=== PATIENT | male | born 1980 | race Caucasian/White ===

== ENCOUNTER 2016-09-15 09:18 | Emergency (ER) | payer SELFPAY ==
[~2016-09-15] VITALS: Ht 182.9 cm; Wt 80.0 kg
[~2016-09-15 09:18] MED LIST: BENT20TA PO; OXYC5 PO
[2016-09-15 09:19] VITALS: BP 139/81; PULSE 86; RESP 18; TEMP 98; O2SAT 98
[2016-09-15] MEDS ORDERED: BENT20TA PO (09:41)
[2016-09-15] MEDS ORDERED: HYDR2TAB PO (09:41)
--- NOTE | 2016-09-15 09:55 | PD ---
HPI Chief Complaint: Flank/Kidney Pain Time Seen by Provider: 09:42 Travel History International Travel<30 days: No Contact w/Intl Traveler<30days: No Traveled to known affect area: No History of Present Illness HPI This patient complains of flank pain. Duration 4 days. Severity is moderate. No injury. It's worse when he presses it. No urinary complaint or fever. Has chronic abdominal pain but this is different than his usual. He denies withdrawal. No alleviating factors. PFSH Past Medical History Asthma: No Blood Disorders: No Heart Rhythm Problems: No Cancer: No Cardiovascular Problems: No High Cholesterol: No Chest Pain: No Congestive Heart Failure: No COPD: No Diabetes: No Diminished Hearing: No Endocrine: No Gastrointestinal Disorders: Yes (HISTORY OF PERF. INTESTINE A CHILD) GERD: Yes Genitourinary: No Immune Disorder: No Implanted Vascular Access Dvce: No Musculoskeletal: No Neurologic: No Psychiatric: No Reproductive: No Respiratory: No Immunizations Current: No Sleep Apnea: No Past Surgical History Abdominal Surgery: Yes (COLOSTOMY-REVERSAL; HERNIAS) Appendectomy: Yes Joint Replacement: Yes (L PERITROCHANTERIC HIP FRACTURE ) Pacemaker: No Other Surgery: Yes Social History Alcohol Use: No (QUIT) Tobacco Use: No Substance Use: Yes (marijuana) Allergies-Medications (Allergen,Severity, Reaction): Coded Allergies: Morphine (Verified Allergy, Severe, 09/15/16) *MDRO Multi-Drug Resistant Organism (Verified Allergy, Unknown, 09/15/16) MRSA Wound 12/2011 Reported Meds & Prescriptions Reported Meds & Active Scripts Active Reported Hydromorphone (Hydromorphone HCl) 2 Mg Tab 2 Mg PO Q8H PRN Bentyl (Dicyclomine HCl) 20 Mg Tab 20 Mg PO BID Review of Systems General / Constitutional: No: Fever Eyes: No: Visual changes HENT: No: Headaches Cardiovascular: No: Chest Pain or Discomfort Respiratory: No: Shortness of Breath Gastrointestinal: Positive: Abdominal Pain Genitourinary: Positive: Flank Pain, No: Dysuria Musculoskeletal: No: Pain Skin: No Rash Neurologic: No: Weakness Psychiatric: No: Depression Endocrine: No: Polydipsia Hematologic/Lymphatic: No: Easy Bruising Physical Exam Narrative GENERAL: Well-nourished, well-developed patient in no apparent distress. SKIN: Warm and dry. HEAD: Atraumatic. Normocephalic. EYES: Pupils equal and round. No scleral icterus. No injection or drainage. ENT: No nasal bleeding or discharge. Mucous membranes pink and moist. NECK: Trachea midline. No JVD. CARDIOVASCULAR: Regular rate and rhythm. No murmur appreciated. RESPIRATORY: No accessory muscle use. Clear to auscultation. Breath sounds equal bilaterally. GASTROINTESTINAL: Abdomen soft, non-tender, nondistended. Hepatic and splenic margins not palpable. MUSCULOSKELETAL: No obvious deformities. No clubbing. No cyanosis. No edema. No midline tenderness of the back. Both low lumbar muscular areas are tender. NEUROLOGICAL: Awake and alert. No obvious cranial nerve deficits. Motor grossly within normal limits. Normal speech. PSYCHIATRIC: Appropriate mood and affect; insight and judgment normal. Data Data Last Documented VS Vital Signs Date Time Temp Pulse Resp B/P Pulse Ox O2 Delivery O2 Flow Rate FiO2 09/15/16 09:19 98.0 86 18 139/81 98 Room Air Orders Iv Access Insert/Monitor (09/15/16 09:51) Complete Blood Count With Diff (09/15/16 09:51) Basic Metabolic Panel (Bmp) (09/15/16 09:51) Urinalysis - C+S If Indicated (09/15/16 09:51) Orphenadrine Inj (Norflex Inj) (09/15/16 10:00) Ketorolac Inj (Toradol Inj) (09/15/16 10:00) Labs Laboratory Tests Test 09/15/16 09/15/16 09:45 09:50 White Blood Count 8.2 TH/MM3 Red Blood Count 4.49 MIL/MM3 Hemoglobin 14.0 GM/DL Hematocrit 39.5 % Mean Corpuscular Volume 88.0 FL Mean Corpuscular Hemoglobin 31.2 PG Mean Corpuscular Hemoglobin 35.5 % Concent Red Cell Distribution Width 13.1 % Platelet Count 221 TH/MM3 Mean Platelet Volume 6.9 FL Neutrophils (%) (Auto) 69.7 % Lymphocytes (%) (Auto) 19.5 % Monocytes (%) (Auto) 8.1 % Eosinophils (%) (Auto) 2.2 % Basophils (%) (Auto) 0.5 % Neutrophils # (Auto) 5.7 TH/MM3 Lymphocytes # (Auto) 1.6 TH/MM3 Monocytes # (Auto) 0.7 TH/MM3 Eosinophils # (Auto) 0.2 TH/MM3 Basophils # (Auto) 0.0 TH/MM3 CBC Comment DIFF FINAL Differential Comment Sodium Level 137 MEQ/L Potassium Level 3.8 MEQ/L Chloride Level 104 MEQ/L Carbon Dioxide Level 26.4 MEQ/L Anion Gap 7 MEQ/L Blood Urea Nitrogen 10 MG/DL Creatinine 0.88 MG/DL Estimat Glomerular Filtration 97 ML/MIN Rate Random Glucose 138 MG/DL Calcium Level 8.6 MG/DL Urine Color YELLOW Urine Turbidity CLEAR Urine pH 5.5 Urine Specific [place] 1.026 Urine Protein NEG mg/dL Urine Glucose (UA) NEG mg/dL Urine Ketones NEG mg/dL Urine Occult Blood NEG Urine Nitrite NEG Urine Bilirubin NEG Urine Urobilinogen 2.0 MG/DL Urine Leukocyte Esterase NEG Urine RBC LESS THAN 1 /hpf Urine WBC LESS THAN 1 /hpf Urine Squamous Epithelial <1 /hpf Cells Urine Mucus FEW /lpf Microscopic Urinalysis Comment CULT NOT INDICATED MDM Medical Decision Making Medical Screen Exam Complete: Yes Emergency Medical Condition: Yes Medical Record Reviewed: Yes Differential Diagnosis Lumbar strain, sciatica, pyelonephritis Narrative Course I have reviewed the patient's electronic medical record. Patient is a frequent visitor to the emergency room for chronic abdominal pain. His last visit however was one year ago IV placed CBC is normal Metabolic profile is normal Urinalysis is clean Patient's abdomen is soft and benign and nontender I gave him injection of Toradol and Norflex This seems most consistent with musculoskeletal back pain Not consistent with kidney stone He is going to follow-up with primary care Diagnosis Primary Impression: Bilateral flank pain Additional Instructions: The patient was advised to follow up with their physician and return if they worsen. Med/Other Pt SpecificInfo: Other Disposition: 01 DISCHARGE HOME Condition: Stable Erasmo Lux MD Sep 15, 2016 09:55
[2016-09-15] MEDS ORDERED: ORPHENADRINE INJ 60 MG/2 ML AMP IM ONE (10:00)
[2016-09-15] MEDS ORDERED: KETOROLAC TROMETHAMINE 30 MG/ML (IVP) VIAL IVP ONE (10:00)
[2016-09-15 10:15] LABS: AUTOMATED NEUTROPHIL # 5.7 TH/MM3 (1.8-7.7); BASOPHIL % 0.5 % (0.0-2.0); EOSINOPHIL # 0.2 TH/MM3 (0-0.4); EOSINOPHIL % 2.2 % (0.0-4.0); HEMATOCRIT 39.5 % (39.0-51.0); HEMO FLAGS DIFF FINAL; LYMPH % 19.5 % (9.0-44.0); LYMPHOCYTE # 1.6 TH/MM3 (1.0-4.8); MEAN CORPUSCULAR HEMOGLOBIN 31.2 PG (27.0-34.0); MEAN CORPUSCULAR HGB CONC 35.5 % (32.0-36.0); MONO % 8.1 % (0.0-8.0); NEUT % 69.7 % (16.0-70.0); PLATELET COUNT 221 TH/MM3 (150-450); RED BLOOD COUNT 4.49 MIL/MM3 (4.50-5.90); RED CELL DISTRIBUTION WIDTH 13.1 % (11.6-17.2); WHITE BLOOD COUNT 8.2 TH/MM3 (4.0-11.0)
[2016-09-15 10:18] LABS: BLOOD, URINE NEG (NEG); COMMENT (UR) CULT NOT INDICATED; CULTURE IF INDICATED CULT NOT INDICATED; GLUCOSE,URINE NEG (NEG); KETONE, URINE NEG (NEG); MUCUS URINE FEW /lpf (OCC); NITRITE,URINE NEG (NEG); PH, URINE 5.5 (5.0-8.5); SQUAMOUS EPITHELIAL CELL URINE <1 /hpf (0-5); URINE COLOR YELLOW (YELLW/STRAW)
[2016-09-15 10:29] LABS: BICARBONATE 26.4 MEQ/L (21.0-32.0); POTASSIUM 3.8 MEQ/L (3.5-5.1)
== END 2016-09-15 13:20 | disposition home or self-care (01) ==
LOC: NEPA 09:18
DX: R10.12 Left upper quadrant pain (principal); R10.11 Right upper quadrant pain
CPT/HCPCS: 80048; 81001; 85025; 96372; 96374; 99284; J1885; J2360

== ENCOUNTER 2018-02-28 10:17 | Observation (INO) ==
[2018-02-28] MEDS ORDERED: Sod Chloride 0.9% Inj 1,000 ML IV.SIG ONE (12:07)
[2018-02-28 12:41] LABS: Baso # (Auto) 0.1 th/mm3 (0.0-0.2); Baso % (Auto) 0.5 % (0.0-2.0); Eos % (Auto) 0.4 % (0.0-4.0); Hematocrit 43.8 % (39.0-51.0); Hemoglobin 14.8 gm/dL (13.0-17.0); Lymph # (Auto) 1.8 th/mm3 (1.0-4.8); Lymph % (Auto) 16.4 % (9.0-44.0); Mean Corpuscular HGB Conc 33.8 % (32.0-36.0); Mean Corpuscular Hemoglobin 31.5 pg (27.0-34.0); Mean Corpuscular Volume 93.4 fL (80.0-100.0); Mean Platelet Volume 6.3 fL (7.0-11.0); Mono # (Auto) 0.6 th/mm3 (0.0-0.9); Neut # (Auto) 8.7 th/mm3 (1.8-7.7); Neut % (Auto) 77.7 % (16.0-70.0); Platelet Count 267 th/mm3 (150-450); Red Blood Count 4.69 mil/mm3 (4.50-5.90); Red Cell Distribution Width 13.6 % (11.6-17.2); White Blood Count 11.2 th/mm3 (4.0-11.0)
--- NOTE | 2018-02-28 12:49 | ED ---
HPI General Chief Complaint: Abdominal Pain Stated Complaint: Abd pain/blood in stool Time Seen by Provider: 02/28/18 11:21 Source: patient Mode of arrival: ambulatory Limitations: no limitations History of Present Illness HPI narrative: Patient comes in with intermittent abdominal pain over the past 2 weeks, however over the past 2 days he has started to have bright red blood per rectum that has been fairly regular. Per patient this is never happened before. Patient has a primary care and Dr. Clifford kessler but no GI doctor. MD complaint: abdominal pain Onset (ago): day(s) (2) Pain Consistency: constant Location: diffuse Severity scale (1-10): 2 Quality: cramping Radiation: none Migration to: no migration Relieving factors: nothing Exacerbating factors: nothing Associated symptoms: denies other symptoms Related Data Home Medications Medication Instructions Recorded Confirmed dicyclomine [Bentyl] 20 mg BID 02/28/18 02/28/18 hydromorphone [Dilaudid] 2 mg PO BID PRN 02/28/18 02/28/18 Allergies Allergy/AdvReac Type Severity Reaction Status Date / Time morphine Allergy Severe Anaphylaxis Unverified 02/28/18 15:00 Review of Systems ROS: all other systems reviewed are negative PMFSH History History Provided By: Patient Family History Family History Other Colonic polyp Social History Social History Substance History: Active Abuse Second Hand Smoke Exposure: No Smoking Status: Former smoker How Often Do You Have a Drink Containing Alcohol: 2 to 4 times a month Recent Travel in [facility] within the Last 8 Weeks: No Recent Out of Country Travel within the Last 8 Weeks: No Substance Abuse Detail Marijuana: Substance Use Status: Active Route Used Substance Abuse: Inhalation Substance Frequency: weekly Immunization History Tetanus Immunization: <5 Years Hx Influenza Vaccine This Season: Yes Exam Narrative Exam Narrative: GENERAL: Well-nourished, well-developed patient in no apparent distress. SKIN: Warm and dry. HEAD: Atraumatic. Normocephalic. EYES: Pupils equal and round. No scleral icterus. No injection or drainage. ENT: No nasal bleeding or discharge. Mucous membranes pink and moist. NECK: Trachea midline. No JVD. CARDIOVASCULAR: Regular rate and rhythm. no rubs or gallops RESPIRATORY: No accessory muscle use. Clear to auscultation. Breath sounds equal bilaterally. GASTROINTESTINAL: Abdomen soft, non-tender, nondistended. No rebound or guarding ... No external hemorrhoids noted, no anal fissure noted. However the patient does have bright red blood per rectum on rectal exam MUSCULOSKELETAL: Extremities without clubbing, cyanosis, or edema. No obvious deformities. NEUROLOGICAL: Awake and alert. No obvious cranial nerve deficits. Motor grossly within normal limits. Five out of 5 muscle strength in the arms and legs. Normal speech. PSYCHIATRIC: Appropriate mood and affect; insight and judgment normal. Course Initial Documented Vital Signs Temperature 98.9 F 02/28/18 10:19 Pulse Rate 97 H 02/28/18 10:19 Respiratory Rate 20 02/28/18 10:19 Blood Pressure 175/72 H 02/28/18 10:19 Pulse Oximetry 96 02/28/18 10:19 Last Documented Vital Signs Temperature 98.9 F 02/28/18 10:19 Pulse Rate 108 H 02/28/18 11:36 Respiratory Rate 18 02/28/18 11:36 Blood Pressure 128/60 02/28/18 11:36 Pulse Oximetry 98 02/28/18 15:34 Medical Decision Making MDM Narrative Medical decision making narrative: CBC was interpreted as no leukocytosis, no anemia, normal platelet count and no evidence of any left shift Electrolytes are all within normal limits, normal liver kidney and pancreatic functions UA was consistent of poor collection however no evidence of any UTI CT abdomen and pelvis performed by and read by radiologist shows postsurgical changes involving the upper abdomen, no abscess is seen, no free fluid or free air is identified, the examination appears similar to the previous study dated September 02, 2059 Patient will be admitted to medical team and GI will be consulted stool sample shows positive C. difficile by PCR returned after patient was admitted, medical team informed by nurse goodman. Medical Screen Exam Complete: Yes Emergency Medical Condition: Yes Differential Diagnosis Differential Diagnosis: AV malformation versus anal fissure versus hemorrhoid versus colitis versus diverticulitis versus ischemic colitis Medical Records Medical records reviewed: Yes I reviewed the patient's medical records. Reviewed multiple admissions in the past, patient seems to prefer Dilaudid as the pain control of choice. Has had a history of colostomy reversal hernia. Repair. 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 Patient is also a long-term opiate user..... However today's visit is much different and that the patient downplays his abdominal pain for his concern of noticing bright red blood coming out of his rectum. He states that he is constantly in pain and today he is no different than any other day, however what is very different is that his multiple episodes of bright red blood per rectum. Lab Data Lab results reviewed: Yes I reviewed the patient's lab results. Result diagrams: 02/28/18 12:22 02/28/18 12:22 Lab Results 02/28/18 02/28/18 02/28/18 Range/Units 12:22 12:22 12:22 WBC 11.2 H (4.0-11.0) th/mm3 RBC 4.69 (4.50-5.90) mil/mm3 Hgb 14.8 (13.0-17.0) gm/dL Hct 43.8 (39.0-51.0) % MCV 93.4 (80.0-100.0) fL MCH 31.5 (27.0-34.0) pg MCHC 33.8 (32.0-36.0) % RDW 13.6 (11.6-17.2) % Plt Count 267 (150-450) th/mm3 MPV 6.3 L (7.0-11.0) fL Neut % (Auto) 77.7 H (16.0-70.0) % Lymph % (Auto) 16.4 (9.0-44.0) % [place] % (Auto) 5.0 (0.0-8.0) % Eos % (Auto) 0.4 (0.0-4.0) % Baso % (Auto) 0.5 (0.0-2.0) % Neut # (Auto) 8.7 H (1.8-7.7) th/mm3 Lymph # (Auto) 1.8 (1.0-4.8) th/mm3 [place] # (Auto) 0.6 (0.0-0.9) th/mm3 Eos # (Auto) 0.0 (0.0-0.4) th/mm3 Baso # (Auto) 0.1 (0.0-0.2) th/mm3 WBC Differential . Differential Comment Auto diff final Sodium 142 (136-145) meq/L Potassium 4.0 (3.5-5.1) meq/L Chloride 109 H (98-107) meq/L Carbon Dioxide 22.7 (21.0-32.0) meq/L Anion Gap 10 (5-15) meq/L BUN 9 (7-18) mg/dL Creatinine 0.84 (0.60-1.30) mg/dL Estimated GFR Greater than 89 (>89) mL/min Random Glucose 86 (74-106) mg/dL Calcium 9.1 (8.5-10.1) mg/dL Total Bilirubin 0.5 (0.2-1.0) mg/dL AST 21 (15-37) U/L ALT 26 (12-78) U/L Alkaline Phosphatase 71 (45-117) U/L Total Protein 7.6 (6.4-8.2) g/dL Albumin 4.5 (3.4-5.0) g/dL Lipase 81 (73-393) U/L Urine Color Straw (Yellw/Straw) Urine Clarity Turbid H (Clear) Urine pH 5.0 (5.0-8.5) Ur Specific [place] 1.021 (1.002-1.035) Urine Protein Negative (Neg-Trace) mg/dL Urine Glucose (UA) Negative (Negative) mg/dL Urine Ketones Negative (Negative) mg/dL Urine Occult Blood Small H (Negative) Urine Nitrate Negative (Negative) Urine Bilirubin Negative (Negative) Urine Urobilinogen Less than 2 (Less than 2) mg/dL Ur Leukocyte Esterase Negative (Negative) Urine RBC 4 H (0-3) /hpf Amorphous Sediment Many H (None) /hpf Urine Mucus Many H (Occasional) /lpf Micro UA Comment Culture not ind Urine Culture Comments Culture not ind Stl C.difficile Tox PCR (Negative) St C. diff Tox Epid 027 (Negative) 02/28/18 Range/Units 14:21 WBC (4.0-11.0) th/mm3 RBC (4.50-5.90) mil/mm3 Hgb (13.0-17.0) gm/dL Hct (39.0-51.0) % MCV (80.0-100.0) fL MCH (27.0-34.0) pg MCHC (32.0-36.0) % RDW (11.6-17.2) % Plt Count (150-450) th/mm3 MPV (7.0-11.0) fL Neut % (Auto) (16.0-70.0) % Lymph % (Auto) (9.0-44.0) % [place] % (Auto) (0.0-8.0) % Eos % (Auto) (0.0-4.0) % Baso % (Auto) (0.0-2.0) % Neut # (Auto) (1.8-7.7) th/mm3 Lymph # (Auto) (1.0-4.8) th/mm3 [place] # (Auto) (0.0-0.9) th/mm3 Eos # (Auto) (0.0-0.4) th/mm3 Baso # (Auto) (0.0-0.2) th/mm3 WBC Differential Differential Comment Sodium (136-145) meq/L Potassium (3.5-5.1) meq/L Chloride (98-107) meq/L Carbon Dioxide (21.0-32.0) meq/L Anion Gap (5-15) meq/L BUN (7-18) mg/dL Creatinine (0.60-1.30) mg/dL Estimated GFR (>89) mL/min Random Glucose (74-106) mg/dL Calcium (8.5-10.1) mg/dL Total Bilirubin (0.2-1.0) mg/dL AST (15-37) U/L ALT (12-78) U/L Alkaline Phosphatase (45-117) U/L Total Protein (6.4-8.2) g/dL Albumin (3.4-5.0) g/dL Lipase (73-393) U/L Urine Color (Yellw/Straw) Urine Clarity (Clear) Urine pH (5.0-8.5) Ur Specific [place] (1.002-1.035) Urine Protein (Neg-Trace) mg/dL Urine Glucose (UA) (Negative) mg/dL Urine Ketones (Negative) mg/dL Urine Occult Blood (Negative) Urine Nitrate (Negative) Urine Bilirubin (Negative) Urine Urobilinogen (Less than 2) mg/dL Ur Leukocyte Esterase (Negative) Urine RBC (0-3) /hpf Amorphous Sediment (None) /hpf Urine Mucus (Occasional) /lpf Micro UA Comment Urine Culture Comments Stl C.difficile Tox PCR Positive H (Negative) St C. diff Tox Epid 027 Negative (Negative) Imaging Data Radiologist's impression: Abdomen/Pelvis CT 02/28/18 12:07 CONCLUSION: 1. Postsurgical changes involving the upper abdomen. 2. No abscess is seen. No free fluid or free air is identified. The examination appears similar to the previous study dated 09/02/2015. Discharge Plan Discharge Disposition Patient Disposition: 30 Still Patient Discharge Condition Condition: Stable Discharge Details Diagnosis: Acute GI bleeding Physicians Team ED Provider: Speedy Stovall Primary Care Provider: Clifford Finnegan Attending Provider: Jacob Bishop Other Providers: Jonel Loving Status ED Status: Admitted Observation Patient
[2018-02-28 12:50] LABS: Amorphous Sediment,Urine Many /hpf; Bilirubin,Urine Negative (Negative); Clarity,Urine Turbid (Clear); Color,Urine Straw (Yellw/Straw); Glucose,Urine (UA) Negative (Negative); Leukocyte Esterase,Urine Negative (Negative); Mucus,Urine Many /lpf (Occasional); Nitrite,Urine Negative (Negative); Specific Gravity,Urine 1.021 (1.002-1.035)
[2018-02-28 13:01] LABS: Albumin 4.5 g/dL (3.4-5.0); Anion Gap 10 meq/L (5-15); Aspartate Aminotransferase 21 U/L (15-37); Blood Urea Nitrogen 9 mg/dL (7-18); Calcium 9.1 mg/dL (8.5-10.1); Carbon Dioxide 22.7 meq/L (21.0-32.0); Chloride 109 meq/L (98-107); Glucose,Random 86 mg/dL (74-106); Lipase 81 U/L (73-393); Sodium 142 meq/L (136-145)
[2018-02-28 13:05] LABS: Alanine Aminotransferase 26 U/L (12-78); Alkaline Phosphatase 71 U/L (45-117); Glomerular Filtration Rate Greater Than 89 mL/min (>89); Total Protein 7.6 g/dL (6.4-8.2)
--- NOTE | 2018-02-28 14:03 | CT ---
EXAM DATE: 02/28/2018 1:53 PM EDT AGE/SEX: 37 years / Male INDICATIONS: Abdominal pain for 2 weeks, now with blood in stool. CLINICAL DATA: This is the patient's initial encounter. Patient reports that signs and symptoms have been present for 2 weeks and indicates a pain score of 4/10. MEDICAL/SURGICAL HISTORY: . Intestinal perforation as child . Prior abdominal surgeries - colo stomy with reversal, prior G-tube, hernia repair ORAL CONTRAST: No oral contrast ingested. RADIATION DOSE: 6.17 CTDI (mGy) [place] [facility] [place] CONTRAST[place] 09/02/2015. . TECHNIQUE: Multiple contiguous axial images were obtained through the abdomen and pelvis following b olus infusion of 71 ml Omnipaque 350 (iohexol) nonionic water-soluble contrast as a single exam dos e. No oral contrast ingested. Using automated exposure control and adjustment of the mA and/or kV ac cording to patient size, radiation dose was kept as low as reasonably achievable to obtain optimal di agnostic quality images. DICOM format image data is available electronically for review and comparis on. FINDINGS: The limited portion of lung base visualized is clear. Imaging through the upper abdomen demonstrates multiple surgical clips along the gastroesophageal giovanni ction. The appearance of the liver, spleen, pancreas, adrenal glands and kidneys is within normal limits. There is no retroperitoneal lymphadenopathy. The abdominal aorta is normal in caliber. The visualized loops of small and large bowel in the upper abdomen are unremarkable. No free air free fluid is seen within the upper abdomen. There is no free fluid within the pelvis. No iliac or inguinal adenopathy is present. The loops of sm all and large bowel within the pelvis are unremarkable. The osseous structures demonstrate postsurgical changes involving the left hip but are otherwise unre markable. CONCLUSION: 1. Postsurgical changes involving the upper abdomen. 2. No abscess is seen. No free fluid or free air is identified. The examination appears similar to t [place] previous study dated 09/02/2015. Electronically signed by: Renaldo Solis MD 02/28/2018 2:02 PM EDT
--- NOTE | 2018-02-28 15:16 | P.CONGI ---
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 Pt is known to our service, last seen in 2012 and underwent EGD and colonoscopy --> Gastritis in the antrum, duodenum was normal, mild esophagitis in the distal esophagus, small hiatal hernia S/P hiatal hernia and Rose fundoplication repair, normal colonoscopy with surgical changes noted in the anus. Pt presented to the ER today with complaints of hematochezia for the past two days and also has been having intermittent abdominal pains for the past two weeks, described as cramping. Denies any light headedness and dizziness. Pt also reports some nausea but denies any emesis. Of note, pt is prescribed Dilaudid and Bentyl by his PCP. Pt quit smoking 6 months ago. He reports having a couple alcoholic drinks a few days ago but can not recall when the last time he had alcohol prior to that was. <Alicia Petersen - Last Filed: 02/28/18 15:02> Review of Systems Ears, Nose, Mouth, and Throat: Denies dizziness Gastrointestinal: Reports abdominal pain, Reports bright, red blood in stools, Reports nausea, Denies vomiting <Alicia Petersen - Last Filed: 02/28/18 15:02> [facility] - History History Provided By: Patient - Medical History Medical History: Medical History (Last Updated 02/28/18 @ 11:35 by Yasir Garcia) Feeding by G-tube - Surgical History Surgical History: Surgical History (Last Updated 02/28/18 @ 11:35 by Yasir Garcia) H/O abdominal surgery History of colostomy reversal S/P hernia surgery - Tobacco History Second Hand Smoke Exposure: No Smoking Status: Former smoker - Alcohol History How Often Do You Have a Drink Containing Alcohol: 2 to 4 times a month - Substance Use History Substance History: Active Abuse - Substance Use Type Marijuana Status: Active Route Used: Inhalation Frequency: weekly - Travel History Recent Travel in the [place] Within the Last 8 Weeks: No Recent Travel Out of the Country Within the Last 8 Weeks: No - Immunization History Tetanus Immunization: <5 Years Hx Influenza Vaccine This Season: Yes <Alicia Petersen - Last Filed: 02/28/18 15:02> - Medical History Medical History: Medical History (Last Updated 02/28/18 @ 11:35 by Yasir Garcia) Feeding by G-tube - Surgical History Surgical History: Surgical History (Last Updated 02/28/18 @ 11:35 by Yasir Garcia) H/O abdominal surgery History of colostomy reversal S/P hernia surgery <Jonel Loving - Last Filed: 03/01/18 12:24> Medications and Allergies Active Medications: Active Medications Sodium Chloride (Ns Flush) 2 ml IV.FLUSH BID [facility] Sodium Chloride (Ns Flush) 2 ml IV.FLUSH PRN PRN PRN Reason: FLUSH AFTER USING IV ACCESS <Alicia Petersen - Last Filed: 02/28/18 15:02> Active Medications: Active Medications Dicyclomine HCl (Bentyl) 20 mg PO BID [facility] Last Admin: 03/01/18 10:30 Dose: 20 mg Hydromorphone HCl (Dilaudid) 2 mg PO BID PRN PRN Reason: pain 1-10 Last Admin: 03/01/18 06:29 Dose: 2 mg Lactobacillus Acidophilus (Lactinex) 1 tab PO BID [facility] Pantoprazole Sodium (Protonix Inj) 40 mg IV.PUSH Q12H [facility] Last Admin: 03/01/18 04:08 Dose: 40 mg Sodium Chloride (Ns Flush) 2 ml IV.FLUSH BID [facility] Last Admin: 03/01/18 10:31 Dose: 2 ml Sodium Chloride (Ns Flush) 2 ml IV.FLUSH PRN PRN PRN Reason: FLUSH AFTER USING IV ACCESS Vancomycin HCl (Vancomycin Po) 250 mg PO QID [facility] Stop: 03/10/18 23:59 Last Admin: 03/01/18 10:30 Dose: 250 mg <Jonel Loving - Last Filed: 03/01/18 12:24> Allergies Allergy/AdvReac Type Severity Reaction Status Date / Time morphine Allergy Severe Anaphylaxis Unverified 02/28/18 15:00 Home Medications Medication Instructions Recorded Confirmed Type dicyclomine [Bentyl] 20 mg BID 02/28/18 02/28/18 History hydromorphone [Dilaudid] 2 mg PO BID PRN 02/28/18 02/28/18 History Exam Vital signs: Vital Signs 02/28/18 10:19 02/28/18 11:36 Temperature 98.9 F Pulse Rate 97 H 108 H Respiratory Rate 20 18 Blood Pressure 175/72 H 128/60 Pulse Oximetry 96 96 Intake & Output 02/27/18 02/28/18 02/28/18 18:59 06:59 18:59 Weight 72.575 kg - Constitutional no acute distress - Routine HEENT Exam Head: Present: normocephalic, atraumatic - Routine Respiratory Exam Absent: accessory muscle use - Routine Abdominal Exam Present: soft, normoactive bowel sounds. Absent: distended Comments: multiple scars noted to abdomen - Routine Skin Exam Present: dry, warm - Routine Neurological Exam Present: alert, oriented X3 <Alicia Petersen - Last Filed: 02/28/18 15:02> Vital signs: Vital Signs 02/28/18 15:34 02/28/18 17:35 02/28/18 20:00 Temperature 98 F Pulse Rate 88 85 Respiratory Rate 18 20 Blood Pressure 126/72 128/69 Pulse Oximetry 98 97 98 03/01/18 00:00 03/01/18 03:41 03/01/18 08:00 Temperature 97.8 F 98 F 98.1 F Pulse Rate 75 68 75 Respiratory Rate 18 18 16 Blood Pressure 116/69 120/81 132/77 Pulse Oximetry 100 99 97 Intake & Output 02/28/18 03/01/18 03/01/18 18:59 06:59 18:59 Intake Total 1000 / 1000 Balance 1000 / 1000 Weight 72.575 kg Intake: IV 1000 / 1000 NS Inj 1,000 ML @ Wide Open IV. 1000 / 1000 SIG BOLUS ONE Rx#:[id number] Other: # Voids 3 # Bowel Movements 1 <Jonel Loving - Last Filed: 03/01/18 12:24> Results - Labs CBC & Chem 7: 02/28/18 12:22 02/28/18 12:22 Labs: Laboratory Results - last 24 hr 02/28/18 02/28/18 02/28/18 12:22 12:22 12:22 WBC 11.2 H RBC 4.69 Hgb 14.8 Hct 43.8 MCV 93.4 MCH 31.5 MCHC 33.8 RDW 13.6 Plt Count 267 MPV 6.3 L Neut % (Auto) 77.7 H Lymph % (Auto) 16.4 Rich % (Auto) 5.0 Eos % (Auto) 0.4 Baso % (Auto) 0.5 Neut # (Auto) 8.7 H Lymph # (Auto) 1.8 Rich # (Auto) 0.6 Eos # (Auto) 0.0 Baso # (Auto) 0.1 WBC Differential . Differential Comment Auto diff final Sodium 142 Potassium 4.0 Chloride 109 H Carbon Dioxide 22.7 Anion Gap 10 BUN 9 Creatinine 0.84 Estimated GFR Greater than 89 Random Glucose 86 Calcium 9.1 Total Bilirubin 0.5 AST 21 ALT 26 Alkaline Phosphatase 71 Total Protein 7.6 Albumin 4.5 Lipase 81 Urine Color Straw Urine Clarity Turbid H Urine pH 5.0 Ur Specific [place] 1.021 Urine Protein Negative Urine Glucose (UA) Negative Urine Ketones Negative Urine Occult Blood Small H Urine Nitrate Negative Urine Bilirubin Negative Urine Urobilinogen Less than 2 Ur Leukocyte Esterase Negative Urine RBC 4 H Amorphous Sediment Many H Urine Mucus Many H Micro UA Comment Culture not ind Urine Culture Comments Culture not ind - Imaging Impressions Abdomen/Pelvis CT 02/28/18 12:07 CONCLUSION: 1. Postsurgical changes involving the upper abdomen. 2. No abscess is seen. No free fluid or free air is identified. The examination appears similar to the previous study dated 09/02/2015. <Alicia Petersen - Last Filed: 02/28/18 15:02> - Labs CBC & Chem 7: 03/01/18 06:52 02/28/18 12:22 Labs: Laboratory Results - last 24 hr 02/28/18 02/28/18 02/28/18 12:22 12:22 12:22 WBC 11.2 H RBC 4.69 Hgb 14.8 Hct 43.8 MCV 93.4 MCH 31.5 MCHC 33.8 RDW 13.6 Plt Count 267 MPV 6.3 L Neut % (Auto) 77.7 H Lymph % (Auto) 16.4 Rich % (Auto) 5.0 Eos % (Auto) 0.4 Baso % (Auto) 0.5 Neut # (Auto) 8.7 H Lymph # (Auto) 1.8 Rich # (Auto) 0.6 Eos # (Auto) 0.0 Baso # (Auto) 0.1 WBC Differential . Differential Comment Auto diff final Sodium 142 Potassium 4.0 Chloride 109 H Carbon Dioxide 22.7 Anion Gap 10 BUN 9 Creatinine 0.84 Estimated GFR Greater than 89 Random Glucose 86 Calcium 9.1 Total Bilirubin 0.5 AST 21 ALT 26 Alkaline Phosphatase 71 Total Protein 7.6 Albumin 4.5 Lipase 81 Urine Color Straw Urine Clarity Turbid H Urine pH 5.0 Ur Specific [place] 1.021 Urine Protein Negative Urine Glucose (UA) Negative Urine Ketones Negative Urine Occult Blood Small H Urine Nitrate Negative Urine Bilirubin Negative Urine Urobilinogen Less than 2 Ur Leukocyte Esterase Negative Urine RBC 4 H Amorphous Sediment Many H Urine Mucus Many H Micro UA Comment Culture not ind Urine Culture Comments Culture not ind Stl C.difficile Tox PCR St C. diff Tox Epid 027 02/28/18 03/01/18 14:21 06:52 WBC RBC Hgb 14.0 Hct 41.0 MCV MCH MCHC RDW Plt Count MPV Neut % (Auto) Lymph % (Auto) Rich % (Auto) Eos % (Auto) Baso % (Auto) Neut # (Auto) Lymph # (Auto) Rich # (Auto) Eos # (Auto) Baso # (Auto) WBC Differential Differential Comment Sodium Potassium Chloride Carbon Dioxide Anion Gap BUN Creatinine Estimated GFR Random Glucose Calcium Total Bilirubin AST ALT Alkaline Phosphatase Total Protein Albumin Lipase Urine Color Urine Clarity Urine pH Ur Specific [place] Urine Protein Urine Glucose (UA) Urine Ketones Urine Occult Blood Urine Nitrate Urine Bilirubin Urine Urobilinogen Ur Leukocyte Esterase Urine RBC Amorphous Sediment Urine Mucus Micro UA Comment Urine Culture Comments Stl C.difficile Tox PCR Positive H St C. diff Tox Epid 027 Negative - Imaging Impressions Abdomen/Pelvis CT 02/28/18 12:07 CONCLUSION: 1. Postsurgical changes involving the upper abdomen. 2. No abscess is seen. No free fluid or free air is identified. The examination appears similar to the previous study dated 09/02/2015. <Jonel Loving - Last Filed: 03/01/18 12:24> Assessment and Plan - Plan Assessment: - Abdominal pain x 2 weeks and hematochezia x 2 days. Reports nausea, denies emesis. Denies any light headedness or dizziness. H/H 14.8/43.8 States rare ETOH, few drinks a few days ago but can not recall the time prior to that. Quit smoking [address] abdomen and pelvis W IV contrast (02/28) Postsurgical changes involving the upper abdomen. No abscess is seen. No free fluid or free air is identified. The examination appears similar to the previous study dated 09/02/2015. Of note, pt reports significant abdominal surgery history, multiple surgeries prior to 5 years old, including feeding tube and colostomy which has since been reversed. Reports ? intestinal blockage and ? imperforate anus. EGD (2012) --> Gastritis in the antrum, duodenum was normal, mild esophagitis in the distal esophagus, small hiatal hernia S/P hiatal hernia and Rose fundoplication repair. Pathology (duodenum) benign duodenal mucosa with no significant histopathology (gastric antrum) benign antral type gastric mucosa with no significant histopathology, negative for H/ Pylori (distal esophagus) benign gastric mucosa with mild chronic inflammation and fibrosis Colonoscopy (2012) --> normal colonoscopy with surgical changes noted in the anus. Plan: EGD and colonoscopy tomorrow Consent obtained Clear liquids today Golytely prep NPO after MN Monitor H/H Protonix C. Diff stool Further recommendations to follow Pt has been seen and examined by myself and Dr. Loving and this note is written on his behalf <Alicia Petersen - Last Filed: 02/28/18 15:02> - Plan Patient was seen and examined, agree with above note, I was initially planning on doing upper endoscopy and colonoscopy but then the patient found to have C. difficile positive which explain his diarrhea and possibly the bleeding, his hemoglobin is 14, so we will hold off on doing these procedures and follow-up clinically, he eventually will need colonoscopy but I want him to have his C. difficile treated first unless he continued to have significant bleeding then we will have to do the colonoscopy and endoscopy <Jonel Loving - Last Filed: 03/01/18 12:24>
--- NOTE | 2018-02-28 15:42 | P.HP ---
History of Present Illness Primary Care Physician: Clifford Finnegan MD History of Present Illness: 37-year-old white male being admitted for bright red blood per rectum. Patient was in his usual state of health until a few days ago and began noticing bright red blood per rectum. This happened a few times a day and progressed for the next few days. Denies any formed stool evacuating with it. Denies any nausea vomiting fevers or chills. Reports typical p.o. intake. Has chronic abdominal pain the intensity of which has not changed amongst this presentation. Patient reports being compliant with his medications of doxycycline and hydromorphone. In the emergency department patient had a CT abdomen done which showed no acute findings. Case was discussed with ER physician. Blood count is within normal limits. Review of Systems All other systems reviewed negative except as stated in HPI PMFSH - History History Provided By: Patient - Medical History Medical History: Medical History (Last Reviewed 02/28/18 @ 15:38 by Jacob Bishop MD) Feeding by G-tube - Surgical History Surgical History: Surgical History (Last Reviewed 02/28/18 @ 15:38 by Jacob Bishop MD) H/O abdominal surgery History of colostomy reversal S/P hernia surgery - Family History Family History: Family History (Last Updated 02/28/18 @ 15:39 by Jacob Bishop MD) Other Colonic polyp - Tobacco History Second Hand Smoke Exposure: No Smoking Status: Former smoker - Alcohol History How Often Do You Have a Drink Containing Alcohol: 2 to 4 times a month - Substance Use History Substance History: Active Abuse - Substance Use Type Marijuana Status: Active Route Used: Inhalation Frequency: weekly - Travel History Recent Travel in the [facility] Within the Last 8 Weeks: No Recent Travel Out of the Country Within the Last 8 Weeks: No - Immunization History Tetanus Immunization: <5 Years Hx Influenza Vaccine This Season: Yes Medications and Allergies Active Medications: Active Medications Pantoprazole Sodium (Protonix Inj) 40 mg IV.PUSH Q12H [facility] Polyethylene Glycol/Electrolytes (Colyte Liq) 4,000 ml PO ONCE ONE Stop: 02/28/18 16:01 Sodium Chloride (Ns Flush) 2 ml IV.FLUSH BID [facility] Sodium Chloride (Ns Flush) 2 ml IV.FLUSH PRN PRN PRN Reason: FLUSH AFTER USING IV ACCESS Allergies Allergy/AdvReac Type Severity Reaction Status Date / Time morphine Allergy Severe Anaphylaxis Unverified 02/28/18 15:00 Home Medications Medication Instructions Recorded Confirmed Type dicyclomine [Bentyl] 20 mg BID 02/28/18 02/28/18 History hydromorphone [Dilaudid] 2 mg PO BID PRN 02/28/18 02/28/18 History Exam Vital signs: Vital Signs 02/28/18 10:19 02/28/18 11:36 02/28/18 15:34 Temperature 98.9 F Pulse Rate 97 H 108 H Respiratory Rate 20 18 Blood Pressure 175/72 H 128/60 Pulse Oximetry 96 96 98 Intake & Output 02/27/18 02/28/18 02/28/18 18:59 06:59 18:59 Weight 72.575 kg Narrative: VS: afebrile GENERAL: Sitting up in bed, awake, alert, no acute distress SKIN: Warm and dry. EYES: No scleral icterus. No injection or drainage. ENT: No nasal bleeding or discharge. Mucous membranes pink and moist. Uvula and tongue in midline CARDIOVASCULAR: Regular rate and rhythm. no murmurs RESPIRATORY: No accessory muscle use. Clear to auscultation. Breath sounds equal bilaterally. GASTROINTESTINAL: Abdomen soft, non-tender, nondistended. Has a grid like appearing abdomen due to his history of his surgeries. Extremities: No clubbing, cyanosis, or edema. No obvious deformities. MUSCULOSKELETAL: adequate muscle bulk and tone for age and habitus NEUROLOGICAL: Awake and alert. No obvious cranial nerve deficits. No facial droop nor slurred speech noted. PSYCHIATRIC: Appropriate mood and affect; insight and judgment normal. Results - Labs CBC & Chem 7: 02/28/18 12:22 02/28/18 12:22 Labs: Laboratory Results - last 24 hr 02/28/18 02/28/18 02/28/18 12:22 12:22 12:22 WBC 11.2 H RBC 4.69 Hgb 14.8 Hct 43.8 MCV 93.4 MCH 31.5 MCHC 33.8 RDW 13.6 Plt Count 267 MPV 6.3 L Neut % (Auto) 77.7 H Lymph % (Auto) 16.4 [place] % (Auto) 5.0 Eos % (Auto) 0.4 Baso % (Auto) 0.5 Neut # (Auto) 8.7 H Lymph # (Auto) 1.8 [place] # (Auto) 0.6 Eos # (Auto) 0.0 Baso # (Auto) 0.1 WBC Differential . Differential Comment Auto diff final Sodium 142 Potassium 4.0 Chloride 109 H Carbon Dioxide 22.7 Anion Gap 10 BUN 9 Creatinine 0.84 Estimated GFR Greater than 89 Random Glucose 86 Calcium 9.1 Total Bilirubin 0.5 AST 21 ALT 26 Alkaline Phosphatase 71 Total Protein 7.6 Albumin 4.5 Lipase 81 Urine Color Straw Urine Clarity Turbid H Urine pH 5.0 Ur Specific [place] 1.021 Urine Protein Negative Urine Glucose (UA) Negative Urine Ketones Negative Urine Occult Blood Small H Urine Nitrate Negative Urine Bilirubin Negative Urine Urobilinogen Less than 2 Ur Leukocyte Esterase Negative Urine RBC 4 H Amorphous Sediment Many H Urine Mucus Many H Micro UA Comment Culture not ind Urine Culture Comments Culture not ind - Imaging Impressions Abdomen/Pelvis CT 02/28/18 12:07 CONCLUSION: 1. Postsurgical changes involving the upper abdomen. 2. No abscess is seen. No free fluid or free air is identified. The examination appears similar to the previous study dated 09/02/2015. Caprini VTE Risk Assessment Caprini VTE Risk Assessment: No/Low Risk (score <= 1) Caprini Risk Assessment Model: Point Value = 1 Point Value = 2 Point Value = 3 Point Value = 5 Age 41-60 Minor surgery BMI > 25 kg/m2 Swollen legs Varicose veins or History of unexplained or recurrent spontaneous Oral contraceptives or hormone replacement Sepsis (< 1 month) Serious lung disease, including pneumonia (< 1 month) Abnormal pulmonary function Acute myocardial infarction Congestive heart failure (< 1 month) History of inflammatory bowel disease Medical patient at bed rest Age 61-74 Arthroscopic surgery Major open surgery (> 45 min) Laparoscopic surgery (> 45 min) Malignancy Confined to bed (> 72 hours) Immobilizing plaster cast Central venous access Age >= 75 History of VTE Family history of VTE Factor V Leiden Prothrombin [id number] Lupus anticoagulant Anticardiolipin antibodies Elevated serum homocysteine Heparin-induced thrombocytopenia Other congenital or acquired thrombophilia Stroke (< 1 month) Elective arthroplasty Hip, pelvis, or leg fracture Acute spinal cord injury (< 1 month) Prophylaxis Regimen: Total Risk Factor Score Risk Level Prophylaxis Regimen 0-1 Low Early ambulation 2 Moderate Order ONE of the following: *Sequential Compression Device (SCD) *Heparin 5000 units SQ BID 3-4 Higher Order ONE of the following medications: *Heparin 5000 units SQ TID *Enoxaparin/Lovenox 40 mg SQ daily (WT < 150 kg, CrCl > 30 mL/min) *Enoxaparin/Lovenox 30 mg SQ daily (WT < 150 kg, CrCl > 10-29 mL/min) *Enoxaparin/Lovenox 30 mg SQ BID (WT < 150 kg, CrCl > 30 mL/min) AND/OR *Sequential Compression Device (SCD) 5 or more Highest Order ONE of the following medications: *Heparin 5000 units SQ TID (Preferred with Epidurals) *Enoxaparin/Lovenox 40 mg SQ daily (WT < 150 kg, CrCl > 30 mL/min) *Enoxaparin/Lovenox 30 mg SQ daily (WT < 150 kg, CrCl > 10-29 mL/min) *Enoxaparin/Lovenox 30 mg SQ BID (WT < 150 kg, CrCl > 30 mL/min) AND *Sequential Compression Device (SCD) Assessment and Plan - Plan 37-year-old white male being admitted for bright red blood per rectum Bright red blood per rectum Etiology could be related to his prior history of surgeries, CT abdomen is unremarkable Blood counts are stable at this time, check CBC in a.m., GI consulted, case discussed with them, plan for scope procedure in a.m. - protonix Chronic abdominal pain Continue home dicyclomine and pain medication Addendum: Nurse reported that lab reported that C. difficile PCR is positive. Will start vancomycin for now. Case discussed with GI, will defer colonoscopy and prep for now.
[2018-02-28] MEDS ORDERED: PEG 3350/E-Lyte Soln 4000 ML Bottle PO ONE (16:00)
[2018-02-28] MEDS: Pantoprazole Inj 40 MG Vial IV.PUSH SCH (17:35)
[2018-03-01] MEDS: Pantoprazole Inj 40 MG Vial IV.PUSH SCH ×2 (04:08→18:24)
--- NOTE | 2018-03-01 10:30 | P.PNIM ---
Subjective Interval history: 37-year-old white male being admitted for bright red blood per rectum. Patient was in his usual state of health until a few days ago and began noticing bright red blood per rectum. This happened a few times a day and progressed for the next few days. Denies any formed stool evacuating with it. Denies any nausea vomiting fevers or chills. Reports typical p.o. intake. Has chronic abdominal pain the intensity of which has not changed amongst this presentation. Patient reports being compliant with his medications of doxycycline and hydromorphone. In the emergency department patient had a CT abdomen done which showed no acute findings. Case was discussed with ER physician. Blood count is within normal limits. 03-01 PATIENT SEEN AND EXAMINED DID NOT PREP FOR EGD AND COLONOSCOPY CANCELLED DW RN AND PT CONTINUE VANCO 250MG PO Q6H Physical Exam Vital signs: Vital Signs 02/28/18 11:36 02/28/18 15:34 02/28/18 17:35 Temperature Pulse Rate 108 H 88 Respiratory Rate 18 18 Blood Pressure 128/60 126/72 Pulse Oximetry 96 98 97 02/28/18 20:00 03/01/18 00:00 03/01/18 03:41 Temperature 98 F 97.8 F 98 F Pulse Rate 85 75 68 Respiratory Rate 20 18 18 Blood Pressure 128/69 116/69 120/81 Pulse Oximetry 98 100 99 03/01/18 08:00 Temperature 98.1 F Pulse Rate 75 Respiratory Rate 16 Blood Pressure 132/77 Pulse Oximetry 97 Intake & Output 02/28/18 03/01/18 03/01/18 18:59 06:59 18:59 Intake Total 1000 / 1000 Balance 1000 / 1000 Weight 72.575 kg Intake: IV 1000 / 1000 NS Inj 1,000 ML @ Wide Open IV. 1000 / 1000 SIG BOLUS ONE Rx#:[id number] Other: # Voids 3 # Bowel Movements 1 Narrative: GENERAL: Awake alert and oriented 3 talkative and cooperative SKIN: Warm and dry. HEAD: Atraumatic. Normocephalic. EYES: Pupils equal and round. No scleral icterus. No injection or drainage. ENT: No nasal bleeding or discharge. Mucous membranes pink and moist. NECK: Trachea midline. No JVD. CARDIOVASCULAR: Regular rate and rhythm. RESPIRATORY: No accessory muscle use. Clear to auscultation. Breath sounds equal bilaterally. GASTROINTESTINAL: Abdomen soft, non-tender, nondistended. Hepatic and splenic margins not palpable. MUSCULOSKELETAL: Extremities without clubbing, cyanosis, or edema. No obvious deformities. NEUROLOGICAL: Awake and alert. No obvious cranial nerve deficits. Motor grossly within normal limits. 4 out of 5 muscle strength in the arms and legs. Normal speech. PSYCHIATRIC: Appropriate mood and affect; insight and judgment normal. Results - Labs CBC & Chem 7: 03/01/18 06:52 02/28/18 12:22 Laboratory Results - last 24 hr 02/28/18 02/28/18 02/28/18 12:22 12:22 12:22 WBC 11.2 H RBC 4.69 Hgb 14.8 Hct 43.8 MCV 93.4 MCH 31.5 MCHC 33.8 RDW 13.6 Plt Count 267 MPV 6.3 L Neut % (Auto) 77.7 H Lymph % (Auto) 16.4 [place] % (Auto) 5.0 Eos % (Auto) 0.4 Baso % (Auto) 0.5 Neut # (Auto) 8.7 H Lymph # (Auto) 1.8 [place] # (Auto) 0.6 Eos # (Auto) 0.0 Baso # (Auto) 0.1 WBC Differential . Differential Comment Auto diff final Sodium 142 Potassium 4.0 Chloride 109 H Carbon Dioxide 22.7 Anion Gap 10 BUN 9 Creatinine 0.84 Estimated GFR Greater than 89 Random Glucose 86 Calcium 9.1 Total Bilirubin 0.5 AST 21 ALT 26 Alkaline Phosphatase 71 Total Protein 7.6 Albumin 4.5 Lipase 81 Urine Color Straw Urine Clarity Turbid H Urine pH 5.0 Ur Specific [place] 1.021 Urine Protein Negative Urine Glucose (UA) Negative Urine Ketones Negative Urine Occult Blood Small H Urine Nitrate Negative Urine Bilirubin Negative Urine Urobilinogen Less than 2 Ur Leukocyte Esterase Negative Urine RBC 4 H Amorphous Sediment Many H Urine Mucus Many H Micro UA Comment Culture not ind Urine Culture Comments Culture not ind Stl C.difficile Tox PCR St C. diff Tox Epid 027 02/28/18 03/01/18 14:21 06:52 WBC RBC Hgb 14.0 Hct 41.0 MCV MCH MCHC RDW Plt Count MPV Neut % (Auto) Lymph % (Auto) [place] % (Auto) Eos % (Auto) Baso % (Auto) Neut # (Auto) Lymph # (Auto) [place] # (Auto) Eos # (Auto) Baso # (Auto) WBC Differential Differential Comment Sodium Potassium Chloride Carbon Dioxide Anion Gap BUN Creatinine Estimated GFR Random Glucose Calcium Total Bilirubin AST ALT Alkaline Phosphatase Total Protein Albumin Lipase Urine Color Urine Clarity Urine pH Ur Specific [place] Urine Protein Urine Glucose (UA) Urine Ketones Urine Occult Blood Urine Nitrate Urine Bilirubin Urine Urobilinogen Ur Leukocyte Esterase Urine RBC Amorphous Sediment Urine Mucus Micro UA Comment Urine Culture Comments Stl C.difficile Tox PCR Positive H St C. diff Tox Epid 027 Negative Microbiology 02/28/18 14:21 Stool Stool for WBCs - Final No WBC's seen - Imaging Impressions Abdomen/Pelvis CT 02/28/18 12:07 CONCLUSION: 1. Postsurgical changes involving the upper abdomen. 2. No abscess is seen. No free fluid or free air is identified. The examination appears similar to the previous study dated 09/02/2015. - Procedures NONE Assessment and Plan - Plan 37-year-old white male being admitted for bright red blood per rectum Bright red blood per rectum Etiology could be related to his prior history of surgeries, CT abdomen is unremarkable Blood counts are stable at this time, check CBC in a.m., GI consulted, case discussed with them, plan for scope procedure in a.m. - protonix Chronic abdominal pain Continue home dicyclomine and pain medication C. difficile PCR is positive. Will start vancomycin 250MG QID for now. WILL FEED PATIENT Case discussed with GI, will defer colonoscopy and prep for now. Code Status: FULL CODE Discussed Condition With: RN AND PT AND CM Discharge Planning: ONCE CLEARED BY GI
--- NOTE | 2018-03-01 11:52 | P.PNGI ---
Subjective Interval history: Pt reports some improvement in his diarrhea, still having some blood in his stool, multiple BMs overnight but only one so far this morning. Denies nausea and vomiting. Waiting on his breakfast tray. States abdominal pain, but reports this is usual of his chronic abdominal pain that he takes Dilaudid for at home Physical Exam Vital signs: Vital Signs 02/28/18 15:34 02/28/18 17:35 02/28/18 20:00 Temperature 98 F Pulse Rate 88 85 Respiratory Rate 18 20 Blood Pressure 126/72 128/69 Pulse Oximetry 98 97 98 03/01/18 00:00 03/01/18 03:41 03/01/18 08:00 Temperature 97.8 F 98 F 98.1 F Pulse Rate 75 68 75 Respiratory Rate 18 18 16 Blood Pressure 116/69 120/81 132/77 Pulse Oximetry 100 99 97 Intake & Output 02/28/18 03/01/18 03/01/18 18:59 06:59 18:59 Intake Total 1000 / 1000 Balance 1000 / 1000 Weight 72.575 kg Intake: IV 1000 / 1000 NS Inj 1,000 ML @ Wide Open IV. 1000 / 1000 SIG BOLUS ONE Rx#:[id number] Other: # Voids 3 # Bowel Movements 1 - Constitutional no acute distress - Routine HEENT Exam Head: Present: normocephalic, atraumatic - Routine Respiratory Exam Absent: accessory muscle use - Routine Cardiovascular Exam Present: RRR - Routine Abdominal Exam Present: soft, normoactive bowel sounds. Absent: tenderness, distended - Routine Skin Exam Present: dry, warm - Routine Neurological Exam Present: alert, oriented X3 Results - Labs CBC & Chem 7: 03/01/18 06:52 02/28/18 12:22 Laboratory Results - last 24 hr 02/28/18 02/28/18 02/28/18 12:22 12:22 12:22 WBC 11.2 H RBC 4.69 Hgb 14.8 Hct 43.8 MCV 93.4 MCH 31.5 MCHC 33.8 RDW 13.6 Plt Count 267 MPV 6.3 L Neut % (Auto) 77.7 H Lymph % (Auto) 16.4 [place] % (Auto) 5.0 Eos % (Auto) 0.4 Baso % (Auto) 0.5 Neut # (Auto) 8.7 H Lymph # (Auto) 1.8 [place] # (Auto) 0.6 Eos # (Auto) 0.0 Baso # (Auto) 0.1 WBC Differential . Differential Comment Auto diff final Sodium 142 Potassium 4.0 Chloride 109 H Carbon Dioxide 22.7 Anion Gap 10 BUN 9 Creatinine 0.84 Estimated GFR Greater than 89 Random Glucose 86 Calcium 9.1 Total Bilirubin 0.5 AST 21 ALT 26 Alkaline Phosphatase 71 Total Protein 7.6 Albumin 4.5 Lipase 81 Urine Color Straw Urine Clarity Turbid H Urine pH 5.0 Ur Specific [place] 1.021 Urine Protein Negative Urine Glucose (UA) Negative Urine Ketones Negative Urine Occult Blood Small H Urine Nitrate Negative Urine Bilirubin Negative Urine Urobilinogen Less than 2 Ur Leukocyte Esterase Negative Urine RBC 4 H Amorphous Sediment Many H Urine Mucus Many H Micro UA Comment Culture not ind Urine Culture Comments Culture not ind Stl C.difficile Tox PCR St C. diff Tox Epid 027 02/28/18 03/01/18 14:21 06:52 WBC RBC Hgb 14.0 Hct 41.0 MCV MCH MCHC RDW Plt Count MPV Neut % (Auto) Lymph % (Auto) [place] % (Auto) Eos % (Auto) Baso % (Auto) Neut # (Auto) Lymph # (Auto) [place] # (Auto) Eos # (Auto) Baso # (Auto) WBC Differential Differential Comment Sodium Potassium Chloride Carbon Dioxide Anion Gap BUN Creatinine Estimated GFR Random Glucose Calcium Total Bilirubin AST ALT Alkaline Phosphatase Total Protein Albumin Lipase Urine Color Urine Clarity Urine pH Ur Specific [place] Urine Protein Urine Glucose (UA) Urine Ketones Urine Occult Blood Urine Nitrate Urine Bilirubin Urine Urobilinogen Ur Leukocyte Esterase Urine RBC Amorphous Sediment Urine Mucus Micro UA Comment Urine Culture Comments Stl C.difficile Tox PCR Positive H St C. diff Tox Epid 027 Negative Microbiology 02/28/18 14:21 Stool Stool for WBCs - Final No WBC's seen - Imaging Impressions Abdomen/Pelvis CT 02/28/18 12:07 CONCLUSION: 1. Postsurgical changes involving the upper abdomen. 2. No abscess is seen. No free fluid or free air is identified. The examination appears similar to the previous study dated 09/02/2015. - Procedures NONE Assessment and Plan - Plan Assessment: - Abdominal pain x 2 weeks and hematochezia x 2 days. Reports nausea, denies emesis. Denies any light headedness or dizziness. H/H 14.8/43.8 States rare ETOH, few drinks a few days ago but can not recall the time prior to that. Quit smoking [address] abdomen and pelvis W IV contrast (02/28) Postsurgical changes involving the upper abdomen. No abscess is seen. No free fluid or free air is identified. The examination appears similar to the previous study dated 09/02/2015. Of note, pt reports significant abdominal surgery history, multiple surgeries prior to 5 years old, including feeding tube and colostomy which has since been reversed. Reports ? intestinal blockage and ? imperforate anus. EGD (2012) --> Gastritis in the antrum, duodenum was normal, mild esophagitis in the distal esophagus, small hiatal hernia S/P hiatal hernia and Rose fundoplication repair. Pathology (duodenum) benign duodenal mucosa with no significant histopathology (gastric antrum) benign antral type gastric mucosa with no significant histopathology, negative for H/ Pylori (distal esophagus) benign gastric mucosa with mild chronic inflammation and fibrosis Colonoscopy (2012) --> normal colonoscopy with surgical changes noted in the anus. (03/01) Pt found to be C. Diff positive, EGD and colonoscopy cancelled. Pt has been started on oral Vanco and probiotics. He reports some improvement in the diarrhea with less blood. H/H remains stable Plan: MAMADOU Treat for C. Diff- Vanco Probiotics Monitor H/H EGD and colonoscopy can be done outpatient Further recommendations to follow Pt has been seen and examined by myself and Dr. Loving and this note is written on his behalf
[2018-03-01 16:16] LABS: Hemoglobin A1c 5.1 % (4.3-6.0)
[2018-03-01] MEDS: Lactobacillus Acidophilus/L. Spores Tablet PO SCH (23:04)
[2018-03-02 04:03] LABS: Hepatitis A IgM Antibody Nonreactive (Nonreactive); Hepatitits B Surface Antigen Nonreactive (Nonreactive)
[2018-03-02] MEDS: Pantoprazole Inj 40 MG Vial IV.PUSH SCH (04:46)
[2018-03-02 09:04] LABS: Baso % (Auto) 0.3 % (0.0-2.0); Eos # (Auto) 0.1 th/mm3 (0.0-0.4); Eos % (Auto) 1.4 % (0.0-4.0); Hematocrit 40.2 % (39.0-51.0); Hemoglobin 13.9 gm/dL (13.0-17.0); Lymph # (Auto) 1.1 th/mm3 (1.0-4.8); Lymph % (Auto) 16.1 % (9.0-44.0); Mean Corpuscular HGB Conc 34.7 % (32.0-36.0); Mean Corpuscular Volume 92.3 fL (80.0-100.0); Mean Platelet Volume 6.3 fL (7.0-11.0); Mono # (Auto) 0.4 th/mm3 (0.0-0.9); Mono % (Auto) 6.6 % (0.0-8.0); Neut % (Auto) 75.6 % (16.0-70.0); Platelet Count 205 th/mm3 (150-450); Red Blood Count 4.35 mil/mm3 (4.50-5.90); Red Cell Distribution Width 13.1 % (11.6-17.2); White Blood Count 6.6 th/mm3 (4.0-11.0)
[2018-03-02] MEDS: Lactobacillus Acidophilus/L. Spores Tablet PO SCH (09:20)
[2018-03-02 09:36] LABS: Alanine Aminotransferase 18 U/L (12-78); Albumin 3.9 g/dL (3.4-5.0); Alkaline Phosphatase 65 U/L (45-117); Anion Gap 5 meq/L (5-15); Aspartate Aminotransferase 14 U/L (15-37); Blood Urea Nitrogen 12 mg/dL (7-18); Calcium 8.7 mg/dL (8.5-10.1); Carbon Dioxide 28.8 meq/L (21.0-32.0); Chloride 104 meq/L (98-107); Glomerular Filtration Rate Greater Than 89 mL/min (>89); Glucose,Random 98 mg/dL (74-106); Magnesium 1.8 mg/dL (1.5-2.5); Sodium 138 meq/L (136-145); Total Protein 6.7 g/dL (6.4-8.2)
--- NOTE | 2018-03-02 11:50 | P.PNIM ---
Subjective Interval history: 37-year-old white male being admitted for bright red blood per rectum. Patient was in his usual state of health until a few days ago and began noticing bright red blood per rectum. This happened a few times a day and progressed for the next few days. Denies any formed stool evacuating with it. Denies any nausea vomiting fevers or chills. Reports typical p.o. intake. Has chronic abdominal pain the intensity of which has not changed amongst this presentation. Patient reports being compliant with his medications of doxycycline and hydromorphone. In the emergency department patient had a CT abdomen done which showed no acute findings. Case was discussed with ER physician. Blood count is within normal limits. 03-01 PATIENT SEEN AND EXAMINED DID NOT PREP FOR EGD AND COLONOSCOPY CANCELLED DW RN AND PT CONTINUE VANCO 250MG PO Q6H 03-02 WILL NEED TO FOLLOW UP WITH GI AN OUTPT FOR PROCEDURES DUE TO C. DIFFICILE DC TO HOME TODAY FOLLOW UP WITH PCP AND GI CONTINUE ORAL VANCO Physical Exam Vital signs: Vital Signs 03/01/18 12:00 03/01/18 18:28 03/02/18 00:21 Temperature 98.0 F 98.1 F 97.8 F Pulse Rate 70 84 73 Respiratory Rate 16 18 18 Blood Pressure 119/84 123/88 112/76 Pulse Oximetry 100 99 100 03/02/18 04:17 03/02/18 08:00 Temperature 97.9 F 98.5 F Pulse Rate 71 76 Respiratory Rate 20 14 Blood Pressure 118/81 119/71 Pulse Oximetry 98 99 Intake & Output 03/01/18 03/02/18 03/02/18 18:59 06:59 18:59 Intake Total 400 / 400 Balance 400 / 400 Intake: Oral 400 / 400 Other: # Voids 3 3 Date of Last Bowel Movement 03/01/18 03/02/18 # Bowel Movements 3 Narrative: GENERAL: Awake alert and oriented 3 talkative and cooperative SKIN: Warm and dry. HEAD: Atraumatic. Normocephalic. EYES: Pupils equal and round. No scleral icterus. No injection or drainage. ENT: No nasal bleeding or discharge. Mucous membranes pink and moist. NECK: Trachea midline. No JVD. CARDIOVASCULAR: Regular rate and rhythm. RESPIRATORY: No accessory muscle use. Clear to auscultation. Breath sounds equal bilaterally. GASTROINTESTINAL: Abdomen soft, non-tender, nondistended. Hepatic and splenic margins not palpable. MUSCULOSKELETAL: Extremities without clubbing, cyanosis, or edema. No obvious deformities. NEUROLOGICAL: Awake and alert. No obvious cranial nerve deficits. Motor grossly within normal limits. 4 out of 5 muscle strength in the arms and legs. Normal speech. PSYCHIATRIC: Appropriate mood and affect; insight and judgment normal. Results - Labs CBC & Chem 7: 03/02/18 08:45 03/02/18 08:45 Laboratory Results - last 24 hr 03/01/18 03/01/18 03/01/18 12:15 12:15 12:15 WBC RBC Hgb Hct MCV MCH MCHC RDW Plt Count MPV Neut % (Auto) Lymph % (Auto) [place] % (Auto) Eos % (Auto) Baso % (Auto) Neut # (Auto) Lymph # (Auto) [place] # (Auto) Eos # (Auto) Baso # (Auto) WBC Differential Differential Comment Sodium Potassium Chloride Carbon Dioxide Anion Gap BUN Creatinine Estimated GFR Random Glucose Hemoglobin A1c 5.1 Calcium Phosphorus Magnesium Total Bilirubin AST ALT Alkaline Phosphatase Total Protein Albumin TSH 0.720 Free T4 0.89 Hepatitis A IgM Ab Hep Bs Antigen Hep B Core IgM Ab Hep C IgG Ab 03/01/18 03/02/18 03/02/18 21:52 08:45 08:45 WBC 6.6 RBC 4.35 L Hgb 13.9 Hct 40.2 MCV 92.3 MCH 32.0 MCHC 34.7 RDW 13.1 Plt Count 205 MPV 6.3 L Neut % (Auto) 75.6 H Lymph % (Auto) 16.1 [place] % (Auto) 6.6 Eos % (Auto) 1.4 Baso % (Auto) 0.3 Neut # (Auto) 5.0 Lymph # (Auto) 1.1 [place] # (Auto) 0.4 Eos # (Auto) 0.1 Baso # (Auto) 0.0 WBC Differential . Differential Comment Auto diff final Sodium 138 Potassium 4.0 Chloride 104 Carbon Dioxide 28.8 Anion Gap 5 BUN 12 Creatinine 0.70 Estimated GFR Greater than 89 Random Glucose 98 Hemoglobin A1c Calcium 8.7 Phosphorus 3.0 Magnesium 1.8 Total Bilirubin 0.9 AST 14 L ALT 18 Alkaline Phosphatase 65 Total Protein 6.7 D Albumin 3.9 D TSH Free T4 Hepatitis A IgM Ab Nonreactive Hep Bs Antigen Nonreactive Hep B Core IgM Ab Nonreactive Hep C IgG Ab Nonreactive - Imaging Abdomen/Pelvis CT 02/28/18 12:07 CONCLUSION: 1. Postsurgical changes involving the upper abdomen. 2. No abscess is seen. No free fluid or free air is identified. The examination appears similar to the previous study dated 09/02/2015. - Procedures NONE Assessment and Plan - Plan 37-year-old white male being admitted for bright red blood per rectum Bright red blood per rectum Etiology could be related to his prior history of surgeries, CT abdomen is unremarkable Blood counts are stable at this time, check CBC in a.m., GI consulted, case discussed with them, plan for scope procedure in a.m. - protonix Chronic abdominal pain Continue home dicyclomine and pain medication C. difficile PCR is positive. Will start vancomycin 250MG QID for now NEEDS TREATMENT FOR 28 DAYS WILL FEED PATIENT Case discussed with GI, will defer colonoscopy and prep for now. DC TO HOME TODAY Code Status: FULL CODE Discussed Condition With: RN AND PT AND CM Discharge Planning: CLEARED BY GI
--- NOTE | 2018-03-02 12:18 | P.DS ---
Date of admission: 02/28/18 15:21 Primary care physician: Clifford Finnegan MD Attending physician on discharge: Marco Linda Anticipated date of discharge: 03/02/18 Brief History from admission: 37-year-old white male being admitted for bright red blood per rectum. Patient was in his usual state of health until a few days ago and began noticing bright red blood per rectum. This happened a few times a day and progressed for the next few days. Denies any formed stool evacuating with it. Denies any nausea vomiting fevers or chills. Reports typical p.o. intake. Has chronic abdominal pain the intensity of which has not changed amongst this presentation. Patient reports being compliant with his medications of doxycycline and hydromorphone. In the emergency department patient had a CT abdomen done which showed no acute findings. Case was discussed with ER physician. Blood count is within normal limits. DS: Diagnosis - Discharge Diagnosis (1) C. difficile colitis Status: Acute (2) Chronic abdominal pain Status: Chronic (3) Acute GI bleeding Status: Acute DS: Medications - Discharge Medications Prescriptions: acidophilus-sporogenes [Acidophilus Ex Str (L. sporog)] 1 tab PO BID #60 tab dicyclomine 20 mg PO QID PRN #120 tab PRN Reason: Abdominal Pain pantoprazole [Protonix] 40 mg PO BID #60 tab vancomycin 250 mg PO QID #112 ea DS: Summary Hospital Course: 37-year-old white male being admitted for bright red blood per rectum. Patient was in his usual state of health until a few days ago and began noticing bright red blood per rectum. This happened a few times a day and progressed for the next few days. Denies any formed stool evacuating with it. Denies any nausea vomiting fevers or chills. Reports typical p.o. intake. Has chronic abdominal pain the intensity of which has not changed amongst this presentation. Patient reports being compliant with his medications of doxycycline and hydromorphone. In the emergency department patient had a CT abdomen done which showed no acute findings. Case was discussed with ER physician. Blood count is within normal limits. 8-15 PATIENT SEEN AND EXAMINED DID NOT PREP FOR EGD AND COLONOSCOPY CANCELLED DW RN AND PT CONTINUE VANCO 250MG PO Q6H 8-16 WILL NEED TO FOLLOW UP WITH GI AN OUTPT FOR PROCEDURES DUE TO C. DIFFICILE DC TO HOME TODAY FOLLOW UP WITH PCP AND GI CONTINUE ORAL VANCO - Time Spent with Patient Total time spent providing and/or coordinating discharge services: Greater than 30 minutes Exam Vital signs: Vital Signs 03/01/18 12:00 03/01/18 18:28 03/02/18 00:21 Temperature 98.0 F 98.1 F 97.8 F Pulse Rate 70 84 73 Respiratory Rate 16 18 18 Blood Pressure 119/84 123/88 112/76 Pulse Oximetry 100 99 100 03/02/18 04:17 03/02/18 08:00 Temperature 97.9 F 98.5 F Pulse Rate 71 76 Respiratory Rate 20 14 Blood Pressure 118/81 119/71 Pulse Oximetry 98 99 Intake & Output 03/01/18 03/02/18 03/02/18 18:59 06:59 18:59 Intake Total 400 / 400 Balance 400 / 400 Intake: Oral 400 / 400 Other: # Voids 3 3 Date of Last Bowel Movement 03/01/18 03/02/18 # Bowel Movements 3 Narrative: GENERAL: Awake alert and oriented 3 talkative and cooperative SKIN: Warm and dry. HEAD: Atraumatic. Normocephalic. EYES: Pupils equal and round. No scleral icterus. No injection or drainage. ENT: No nasal bleeding or discharge. Mucous membranes pink and moist. NECK: Trachea midline. No JVD. CARDIOVASCULAR: Regular rate and rhythm. RESPIRATORY: No accessory muscle use. Clear to auscultation. Breath sounds equal bilaterally. GASTROINTESTINAL: Abdomen soft, non-tender, nondistended. Hepatic and splenic margins not palpable. MUSCULOSKELETAL: Extremities without clubbing, cyanosis, or edema. No obvious deformities. NEUROLOGICAL: Awake and alert. No obvious cranial nerve deficits. Motor grossly within normal limits. 4 out of 5 muscle strength in the arms and legs. Normal speech. PSYCHIATRIC: Appropriate mood and affect; insight and judgment normal. Results Procedures completed during hospitalization: NONE Completed studies during hospitalization: Laboratory Results WBC 6.6 th/mm3 (4.0-11.0) 03/02/18 08:45 RBC 4.35 mil/mm3 (4.50-5.90) L 03/02/18 08:45 Hgb 13.9 gm/dL (13.0-17.0) 03/02/18 08:45 Hct 40.2 % (39.0-51.0) 03/02/18 08:45 MCV 92.3 fL (80.0-100.0) 03/02/18 08:45 MCH 32.0 pg (27.0-34.0) 03/02/18 08:45 MCHC 34.7 % (32.0-36.0) 03/02/18 08:45 RDW 13.1 % (11.6-17.2) 03/02/18 08:45 Plt Count 205 th/mm3 (150-450) 03/02/18 08:45 MPV 6.3 fL (7.0-11.0) L 03/02/18 08:45 Neut % (Auto) 75.6 % (16.0-70.0) H 03/02/18 08:45 Lymph % (Auto) 16.1 % (9.0-44.0) 03/02/18 08:45 [place] % (Auto) 6.6 % (0.0-8.0) 03/02/18 08:45 Eos % (Auto) 1.4 % (0.0-4.0) 03/02/18 08:45 Baso % (Auto) 0.3 % (0.0-2.0) 03/02/18 08:45 Neut # (Auto) 5.0 th/mm3 (1.8-7.7) 03/02/18 08:45 Lymph # (Auto) 1.1 th/mm3 (1.0-4.8) 03/02/18 08:45 [place] # (Auto) 0.4 th/mm3 (0.0-0.9) 03/02/18 08:45 Eos # (Auto) 0.1 th/mm3 (0.0-0.4) 03/02/18 08:45 Baso # (Auto) 0.0 th/mm3 (0.0-0.2) 03/02/18 08:45 WBC Differential . 03/02/18 08:45 Differential Comment Auto diff final 03/02/18 08:45 Sodium 138 meq/L (136-145) 03/02/18 08:45 Potassium 4.0 meq/L (3.5-5.1) 03/02/18 08:45 Chloride 104 meq/L (98-107) 03/02/18 08:45 Carbon Dioxide 28.8 meq/L (21.0-32.0) 03/02/18 08:45 Anion Gap 5 meq/L (5-15) 03/02/18 08:45 BUN 12 mg/dL (7-18) 03/02/18 08:45 Creatinine 0.70 mg/dL (0.60-1.30) 03/02/18 08:45 Estimated GFR Greater than 89 mL/min (>89) 03/02/18 08:45 Random Glucose 98 mg/dL (74-106) 03/02/18 08:45 Hemoglobin A1c 5.1 % (4.3-6.0) 03/01/18 12:15 Calcium 8.7 mg/dL (8.5-10.1) 03/02/18 08:45 Phosphorus 3.0 mg/dL (2.5-4.9) 03/02/18 08:45 Magnesium 1.8 mg/dL (1.5-2.5) 03/02/18 08:45 Total Bilirubin 0.9 mg/dL (0.2-1.0) 03/02/18 08:45 AST 14 U/L (15-37) L 03/02/18 08:45 ALT 18 U/L (12-78) 03/02/18 08:45 Alkaline Phosphatase 65 U/L (45-117) 03/02/18 08:45 Total Protein 6.7 g/dL (6.4-8.2) D 03/02/18 08:45 Albumin 3.9 g/dL (3.4-5.0) D 03/02/18 08:45 Lipase 81 U/L (73-393) 02/28/18 12:22 TSH 0.720 uIU/mL (0.358-3.740) 03/01/18 12:15 Free T4 0.89 ng/dL (0.76-1.46) 03/01/18 12:15 Urine Color Straw (Yellw/Straw) 02/28/18 12:22 Urine Clarity Turbid (Clear) H 02/28/18 12:22 Urine pH 5.0 (5.0-8.5) 02/28/18 12:22 Ur Specific [place] 1.021 (1.002-1.035) 02/28/18 12:22 Urine Protein Negative mg/dL (Neg-Trace) 02/28/18 12:22 Urine Glucose (UA) Negative mg/dL (Negative) 02/28/18 12:22 Urine Ketones Negative mg/dL (Negative) 02/28/18 12:22 Urine Occult Blood Small (Negative) H 02/28/18 12:22 Urine Nitrate Negative (Negative) 02/28/18 12:22 Urine Bilirubin Negative (Negative) 02/28/18 12:22 Urine Urobilinogen Less than 2 mg/dL (Less than 2) 02/28/18 12:22 Ur Leukocyte Esterase Negative (Negative) 02/28/18 12:22 Urine RBC 4 /hpf (0-3) H 02/28/18 12:22 Amorphous Sediment Many /hpf (None) H 02/28/18 12:22 Urine Mucus Many /lpf (Occasional) H 02/28/18 12:22 Micro UA Comment Culture not ind 02/28/18 12:22 Urine Culture Comments Culture not ind 02/28/18 12:22 Stl C.difficile Tox PCR Positive (Negative) H 02/28/18 14:21 St C. diff Tox Epid 027 Negative (Negative) 02/28/18 14:21 Hepatitis A IgM Ab Nonreactive (Nonreactive) 03/01/18 21:52 Hep Bs Antigen Nonreactive (Nonreactive) 03/01/18 21:52 Hep B Core IgM Ab Nonreactive (Nonreactive) 03/01/18 21:52 Hep C IgG Ab Nonreactive (Nonreactive) 03/01/18 21:52 Impressions Abdomen/Pelvis CT 02/28/18 12:07 CONCLUSION: 1. Postsurgical changes involving the upper abdomen. 2. No abscess is seen. No free fluid or free air is identified. The examination appears similar to the previous study dated 09/02/2015. Labs on day of discharge: Labs from last 24 hours 03/02/18 03/02/18 03/01/18 08:45 08:45 21:52 WBC 6.6 RBC 4.35 L Hgb 13.9 Hct 40.2 MCV 92.3 MCH 32.0 MCHC 34.7 RDW 13.1 Plt Count 205 MPV 6.3 L Neut % (Auto) 75.6 H Lymph % (Auto) 16.1 [place] % (Auto) 6.6 Eos % (Auto) 1.4 Baso % (Auto) 0.3 Neut # (Auto) 5.0 Lymph # (Auto) 1.1 [place] # (Auto) 0.4 Eos # (Auto) 0.1 Baso # (Auto) 0.0 WBC Differential . Differential Comment Auto diff final Sodium 138 Potassium 4.0 Chloride 104 Carbon Dioxide 28.8 Anion Gap 5 BUN 12 Creatinine 0.70 Estimated GFR Greater than 89 Random Glucose 98 Hemoglobin A1c Calcium 8.7 Phosphorus 3.0 Magnesium 1.8 Total Bilirubin 0.9 AST 14 L ALT 18 Alkaline Phosphatase 65 Total Protein 6.7 D Albumin 3.9 D TSH Free T4 Hepatitis A IgM Ab Nonreactive Hep Bs Antigen Nonreactive Hep B Core IgM Ab Nonreactive Hep C IgG Ab Nonreactive 03/01/18 03/01/18 03/01/18 12:15 12:15 12:15 WBC RBC Hgb Hct MCV MCH MCHC RDW Plt Count MPV Neut % (Auto) Lymph % (Auto) [place] % (Auto) Eos % (Auto) Baso % (Auto) Neut # (Auto) Lymph # (Auto) [place] # (Auto) Eos # (Auto) Baso # (Auto) WBC Differential Differential Comment Sodium Potassium Chloride Carbon Dioxide Anion Gap BUN Creatinine Estimated GFR Random Glucose Hemoglobin A1c 5.1 Calcium Phosphorus Magnesium Total Bilirubin AST ALT Alkaline Phosphatase Total Protein Albumin TSH 0.720 Free T4 0.89 Hepatitis A IgM Ab Hep Bs Antigen Hep B Core IgM Ab Hep C IgG Ab - Impressions ITS Impressions Abdomen/Pelvis CT 02/28/18 12:07 CONCLUSION: 1. Postsurgical changes involving the upper abdomen. 2. No abscess is seen. No free fluid or free air is identified. The examination appears similar to the previous study dated 09/02/2015. Discharge Plan - Discharge Disposition Patient Disposition: Discharge Home - Discharge Condition Condition: Stable - Discharge Order Discharge Orders: Discharge Order (Routine); Ordered 03/02/18 Ordered By: Marco Linda - Discharge Details Anticipated Discharge Date: 03/02/18 Discharge Comment: DC TO HOME TODAY - Physicians Team Primary Care Provider: Clifford Finnegan Attending Provider: Marco Linda Other Providers: Jonel Loving MD
[2018-03-02 12:32] VITALS: BP 130/74; PULSE 75; RESP 16; TEMP 98.3; O2SAT 98
== END 2018-03-02 13:31 | disposition home or self-care (01) ==
LOC: NEPGCP 10:17 → NEDA 10:17 → NEPD 10:17 → NEPGCP 18:28
PROVIDERS: ADMIT Hospitalist; ATTEND Hospitalist
DX: G89.29 Other chronic pain; A04.72 Enterocolitis due to Clostridium difficile, not specified as recurrent; R10.9 Unspecified abdominal pain; Z88.5 Allergy status to narcotic agent; R11.0 Nausea; Z79.899 Other long term (current) drug therapy; Z87.891 Personal history of nicotine dependence; Z83.71 Family history of colonic polyps; K62.5 Hemorrhage of anus and rectum; B96.89 Other specified bacterial agents as the cause of diseases classified elsewhere